=== PATIENT | male | born 1975 | race Caucasian/White ===

== ENCOUNTER 2018-03-07 23:41 | Emergency (ER) | payer SELFPAY ==
[~2018-03-07] VITALS: Ht 175.3 cm; Wt 78.9 kg
[2018-03-07 23:58] VITALS: BP 132/70
[2018-03-07] MEDS ORDERED: MINIPRESS5 MG PO (23:58)
[2018-03-08] MEDS ORDERED: VISTARIL50 MG ORAL (00:01)
--- NOTE | 2018-03-08 00:02 | Emergency Room Report ---
History of Present Illness General Chief Complaint: General Complaint Source: Patient Present Illness HPI Is a 42-year-old male who has a history of anxiety panic attack. He presents with chief complaint of anxiety/panic attack. He is currently here from [place] in a rehabilitation facility for alcohol abuse. One of the residents there has a positive TB test and kyler had a chest x-ray. Results of the chest rate is not known yet. Patient said that resident breathing on him and now he felt anxious. He wanted something to calm him down. Patient is not coughing. The other resident is not coughing. No night sweats. No fever chills. No nausea no vomiting. Allergies: Uncoded Allergies: IODINE CONTRAST (Allergy, Unknown, 03/07/18) SHELLFISH (Allergy, Unknown, 03/07/18) Patient History Past Medical History: see triage record, old chart reviewed, psych hx Past Surgical History: other Pertinent Family History: none Social History: Reports: alcohol use Immunizations: other Reviewed Nursing Documentation: PMH: Agreed; PSxH: Agreed Nursing Documentation-PMH Hx Cancer: Yes - HISTORY OF TESTICULAR CARCINOMA,ORCHIECTOMY IN 2004 History Of Psychiatric Problem: Yes - PTSD Review of Systems Eye: Denies: eye pain, blurred vision ENT: Denies: ear pain, nose congestion, throat swelling Respiratory: Denies: cough, shortness of breath Cardiovascular: Denies: chest pain, palpitations Gastrointestinal: Denies: abdominal pain, diarrhea, nausea, vomiting Musculoskeletal: Denies: back pain, joint pain Skin: Denies: rash Neurological: Denies: headache, numbness Endocrine: Denies: increased thirst, increased urine Hematologic/Lymphatic: Denies: easy bruising All Other Systems: negative except mentioned in HPI Physical Exam Vital Signs Date Time Temp Pulse Resp B/P (MAP) Pulse Ox O2 Delivery O2 Flow Rate FiO2 03/07/18 23:44 98.1 115 16 132/70 95 98.1 vitals with tachycardia Sp02 EP Interpretation: reviewed, normal General Appearance: well appearing, no apparent distress, alert Head: normocephalic, atraumatic Eyes: bilateral eye PERRL, bilateral eye EOMI ENT: hearing grossly normal, normal pharynx Neck: full range of motion, supple, no meningismus Respiratory: chest non-tender, lungs clear, normal breath sounds Cardiovascular #1: regular rate, rhythm, no murmur Gastrointestinal: normal bowel sounds, non tender, no mass, no organomegaly, no bruit, non-distended Musculoskeletal: back normal, gait/station normal, normal range of motion Neurologic: alert, oriented x3 Psychiatric: anxious Skin: warm/dry Medical Decision Making Diagnostic Impression: Primary Impression: Acute stress reaction ER Course Patient presents with acute stress reaction. Try reassure the patient that discussed in one breathing him does not mean that he will get TB. Since he is in a rehabilitation center cannot give him controlled substances per day rehabilitation center protocol. We'll discharge home with reassurance. Last Vital Signs Date Time Temp Pulse Resp B/P (MAP) Pulse Ox O2 Delivery O2 Flow Rate FiO2 03/07/18 23:44 98.1 115 16 132/70 95 98.1 Status: unchanged Disposition: HOME, SELF-CARE Condition: Stable Scripts Hydroxyzine Pamoate* (VISTARIL*) 50 Mg Capsule 50 MG ORAL EVERY 6 HOURS, #20 TAB 0 Refills Prov: CYNDI CALDERA M.D. 03/08/18 Additional Instructions: Follow-up with your doctor in 7 days. If you are concerned, wear a mask. Return if symptom worsen. CYNDI CALDERA M.D. Mar 08, 2018 00:02
[2018-03-08 00:08] VITALS: BP 132/70
== END 2018-03-08 00:10 | disposition home or self-care (01) ==
LOC: EMR 23:59
DX: F43.9 Reaction to severe stress, unspecified (principal); Z85.47 Personal history of malignant neoplasm of testis; F43.10 Post-traumatic stress disorder, unspecified
CPT/HCPCS: 99283

== ENCOUNTER 2018-10-31 21:45 | Emergency (ER) | payer MEDICAID, OTHER ==
[~2018-10-31] VITALS: Ht 175.3 cm; Wt 82.6 kg
[~2018-10-31 21:45] MED LIST: MINIPRESS5 MG PO; VISTARIL50 MG ORAL
[2018-10-31 22:00] VITALS: BP 128/83
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
[2018-10-31] MEDS ORDERED: IBUPROFEN600 MG ORAL (22:19)
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
--- NOTE | 2018-10-31 22:20 | NUR ---
ED Nurse Note: pt went to ct with tech
[2018-10-31 22:37] VITALS: BP 128/83
--- NOTE | 2018-10-31 22:37 | NUR ---
ED Nurse Note: Patient is being discharged from ED alert and oriented x4, ambulatory with a steady gait, VSS. Patient acknowledged the need to follow up with a PMD, Patient was advised to return if symptoms worsen. prescription in hand, ID band removed. pt left the ed with all the belongings.
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
== END 2018-10-31 22:37 | disposition home or self-care (01) ==
LOC: EMR 22:19
DX: M54.2 Cervicalgia (principal); V43.62XA Car passenger injured in collision with other type car in traffic accident, initial encounter; Y92.414 Local residential or business street as the place of occurrence of the external cause; Z91.041 Radiographic dye allergy status; Z91.013 Allergy to seafood
CPT/HCPCS: 72040; 99283